=== PATIENT | female | born 2000 | race Hispanic/Latino ===

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

== ENCOUNTER 2025-09-28 23:35 | Emergency (ER) | payer BC, MEDICAID ==
[~2025-09-28] VITALS: Ht 152.4 cm; Wt 63.5 kg
--- NOTE | 2025-09-29 00:34 | NUR ---
PATIENT OBSERVED HAVING A SEIZURE
[2025-09-29 00:42] LABS: HCG,QUALITATIVE URINE NEGATIVE (NEGATIVE)
[2025-09-29 00:46] LABS: AMPHET/METH SCREEN,URINE NEGATIVE (NEGATIVE); BARBITURATE SCREEN, URINE NEGATIVE (NEGATIVE); CANNABINOID SCREEN,URINE POSITIVE (NEGATIVE); COCAINE SCREEN,URINE NEGATIVE (NEGATIVE)
--- NOTE | 2025-09-29 00:47 | NUR ---
TRIAGE EDIT TO REFECT UDS
[2025-09-29] MEDS: leveTIRACEtam 500 MG/5 ML SD V 500 MG in 0.9%NACL 100ML 100 ML IV SCH (01:25)
--- NOTE | 2025-09-29 01:29 | NUR ---
PATIENT OBSERVED HAVING ANOTHER SEIZURE, Nathan ESPARZA MADE AWARE
[2025-09-29 01:44] LABS: IMMATURE GRANULOCYTE ABSOLUTE 0.06 K/uL (0-1); NUCLEATED RED BLOOD CELLS 0.0 % (0.0-0.19); PLATELET COUNT (AUTO) 302 K/uL (130-400); RED BLOOD CELL COUNT(AUTO) 4.67 MIL/uL (4.00-5.50); RED CELL DISTRIBUTION WIDTH 12.4 % (11.0-15.5); WHITE BLOOD COUNT (AUTO) 13.1 K/uL (4.8-10.8)
--- NOTE | 2025-09-29 01:45 | ERN ---
ED Note History of Present Illness Stated Complaint: SEIZURE. SEEN AT [facility] [employer] AND DISCHARGED Chief Complaint: Seizure Time Seen by MD: 23:37 Time Seen by Midlevel: 23:40 Dictation: 24-year-old female history of epilepsy taking Keppra 1 g daily. Patient is coming in with complaints of headache and neck pain. Patient states she was in the shower slipped and fell backwards hitting her head on the soap dispenser breaking it. Patient denies any LOC but states has a felt dizzy. Patient states she was coming from [facility] for same complaint but states they only gave her 500 mg of IV Keppra for her seizures and discharged her. Allergies: Coded Allergies: No Known Allergies (Unverified Allergy, Unknown, 09/28/25) Past Medical History Past Medical History: Seizure Surgical History: Review of System Dictation Constitutional: Negative for fever,chills, and weight loss Eyes: Negative for injury, pain,redness, and discharge ENT: Negative for injury,pain or swelling Cardiovascular: Negative for chest pain, palpitations, and edema Respiratory: Negative for shortness of breath, cough, and wheezing, Abdomen/GI: Negative for abdominal pain, nausea, vomiting, diarrhea, and constipation Back: Negative for injury and pain : Negative for injury, bleeding and discharge MS/Extremity: Negative for injury and deformity Skin: Negative for rash, and discoloration Neuro: Headache without any numbness, tingling Psych: Negative for suicide ideation, homicidal ideation, and hallucinations Review of Systems: was completed Initial Vital Sign VS Vital Signs Date Time Temp Pulse Resp B/P (MAP) Pulse Ox O2 Delivery O2 Flow Rate FiO2 09/28/25 23:37 98.2 109 20 109/61 100 Room Air 09/29/25 01:41 0 21 Physical Exam Dictation General: awake, alert, NAD Head/Face: Normocephalic, atraumatic Eyes: PERRL, EOMI, vision at baseline ENT: oral cavity clear, TMs clear, no signs of infection Neck: Trachea midline, supple, no nuchal rigidity Cardiovascular: RRR, normal S1/S2, No MRGs, no JVD Respiratory: CTAB, no respiratory distress, No rales or wheezes Abdomen: Soft, non-tender, non-distended, normal bowel sounds, no guarding or rebound. Skin: Warm, dry, normal turgor, no rash MS/Extremity: Pulses equal, no cyanosis, neurovascular intact, FROM Neuro: COAx4, GCS 15, strength 5/5, CN 2-12 intact, normal cerebellar exam, normal gait, Psych: Normal behavior, mood, and affect normal Results (Laboratory/Radiology) Laboratory/Radiology Laboratory Tests Test 09/29/25 00:19 09/29/25 01:35 Urine Color LIGHT-YELLOW (YELLOW) Urine Appearance CLEAR (CLEAR) Urine pH 5.5 (5.0-8.0) Urine Specific [place] 1.018 (1.001-1.031) Urine Protein NEGATIVE mg/dL (NEGATIVE) Urine Glucose (UA) NEGATIVE mg/dL (NEGATIVE) Urine Ketones NEGATIVE mg/dL (NEGATIVE) Urine Occult Blood +- (TRACE) (NEGATIVE) H Urine Nitrate NEGATIVE (NEGATIVE) Urine Bilirubin NEGATIVE mg/dL (NEGATIVE) Urine Urobilinogen 0.2 mg/dL (0.2-1.0) Urine Leukocyte Esterase NEGATIVE Carlita/uL Urine RBC 2-5 /HPF (0-1) H Urine WBC 2-5 /HPF (0-1) H Urine Squamous Epithelial Cells FEW /HPF (0-2) Urine Bacteria RARE /HPF (None Seen) Urine HCG, Qualitative NEGATIVE (NEGATIVE) Urine Opiates Screen NEGATIVE (NEGATIVE) Urine Barbiturates Screen NEGATIVE (NEGATIVE) Urine Phencyclidine Screen NEGATIVE (NEGATIVE) Urine Amphetamines Screen NEGATIVE (NEGATIVE) Urine Benzodiazepines Screen NEGATIVE (NEGATIVE) Urine Cocaine Screen NEGATIVE (NEGATIVE) Urine Marijuana (THC) Screen POSITIVE (NEGATIVE) H White Blood Count 13.1 K/uL (4.8-10.8) H Red Blood Count 4.67 MIL/uL (4.00-5.50) Hemoglobin 13.9 g/dL (12.0-16.0) Hematocrit 41.4 % (36-48) Mean Corpuscular Volume 88.7 fL (79-99) Mean Corpuscular Hemoglobin 29.8 pg (27.0-33.0) Mean Corpuscular Hemoglobin Concent 33.6 g/dL (32.0-36.0) Red Cell Distribution Width 12.4 % (11.0-15.5) Platelet Count 302 K/uL (130-400) Mean Platelet Volume 10.7 fL (7.5-10.5) H Immature Granulocyte % (Auto) 0.5 % (0-1) Neutrophils (%) (Auto) 77.5 % (40.0-77.0) H Lymphocytes (%) (Auto) 13.0 % (21.0-51.0) L Monocytes (%) (Auto) 6.7 % (3.0-13.0) Eosinophils (%) (Auto) 1.9 % (0.0-8.0) Basophils (%) (Auto) 0.4 % (0.0-5.0) Neutrophils # (Auto) 10.2 K/uL (1.8-7.7) H Lymphocytes # (Auto) 1.7 K/uL (1.0-4.8) Monocytes # (Auto) 0.9 K/uL (0.1-1.0) Eosinophils # (Auto) 0.25 K/uL (0.00-0.70) Basophils # (Auto) 0.05 K/uL (0.00-0.20) Absolute Immature Granulocyte (auto 0.06 K/uL (0-1) Nucleated Red Blood Cells 0.0 % (0.0-0.19) Sodium Level 138 mmol/L (136-145) Potassium Level 4.0 mmol/L (3.5-5.1) Chloride Level 103 mmol/L (101-111) Carbon Dioxide Level 24 mmol/L (21-32) Blood Urea Nitrogen 18 mg/dL (7-18) Creatinine 0.6 mg/dL (0.5-1.0) Glomerular Filtration Rate Calc 127 mL/min (>90) Random Glucose 88 mg/dL (70-105) Lactic Acid Level 2.9 mmol/L (0.8-2.5) H Total Calcium 9.1 mg/dL (8.5-10.1) Total Creatine Kinase 138 U/L (21-232) # Labs Reviewed?: Yes ED Course ED Course Orders Procedure Category Date Status Time Ct Head/Brain W/O CT 09/28/25 Resulted Contrast 23:41 Ct Cervical Spine W/O CT 09/28/25 Resulted Contrast 23:41 ,Urine Test LAB 09/29/25 Complete 00:10 Drug Screen Urine LAB 09/29/25 Complete 00:10 Levetiracetam 500 PHA 09/29/25 Complete Mg/5 Ml Sd V (Keppra 5 06:00 Lorazepam 2 Mg PHA 09/29/25 Complete (Ativan) 01:00 Levetiracetam 500 PHA 09/29/25 Complete Mg/5 Ml Sd V (Keppra 5 01:30 Phenytoin 100mg PHA 09/29/25 Complete (50mg/Ml) Inj 01:49 Cbc With Differential LAB 09/29/25 Complete 01:33 Basic Metabolic Panel LAB 09/29/25 Complete 01:33 Lactic Acid LAB 09/29/25 Complete 01:33 Creatine Kinase, Total LAB 09/29/25 Complete 01:33 Phenytoin Sodium PHA 09/29/25 Complete 250mg (Dilantin 250mg 01:51 Urinalysis Profile LAB 09/29/25 Complete 01:53 Current Medications Medications (Trade) Dose Ordered Sig/Polly Route PRN Reason Start Time Stop Time Status Last Admin Dose Admin Levetiracetam 500 mg/Sodium Chloride 100 ml @ 400 mls/hr Q8H IV 09/29/25 01:30 09/29/25 01:27 DC 09/29/25 01:25 Levetiracetam 500 mg/Sodium Chloride 100 ml @ 400 mls/hr Q8H IV 09/29/25 06:00 09/29/25 01:09 DC Lorazepam (AtiVAN) 1 mg ONCE ONCE IVP 09/29/25 01:00 09/29/25 01:01 DC 09/29/25 00:48 Phenytoin Sodium 1000 mg/Sodium Chloride 50 ml @ 300 mls/hr ONCE STAT INJ 09/29/25 01:51 09/29/25 02:00 DC 09/29/25 02:06 Phenytoin Sodium 1000 mg/Sodium Chloride 50 ml @ 300 mls/hr ONCE STAT IV 09/29/25 01:49 09/29/25 01:51 DC Vital Signs Date Time Temp Pulse Resp B/P (MAP) Pulse Ox O2 Delivery O2 Flow Rate FiO2 09/29/25 03:52 98.4 65 17 101/56 Room Air* 0 09/29/25 02:43 80 18 110/72 97 Room Air* 0 09/29/25 01:41 90 18 107/76 96 Room Air* 0 09/28/25 23:37 98.2 109 20 109/61 100 Room Air Medical Decision Making MDM MDM: 24-year-old female history of epilepsy taking Keppra 1 g daily. Patient is coming in with complaints of headache and neck pain. Patient states she was in the shower slipped and fell backwards hitting her head on the soap dispenser breaking it. Patient denies any LOC but states has a felt dizzy. Patient states she was coming from [facility] for same complaint but states they only gave her 500 mg of IV Keppra for her seizures and discharged her. Patient had a tonic-clonic seizure lasting about 1 minute. 500 mg of IV Keppra odor to complete the 1 g. 1 mg of Ativan ordered. At around 130, patient had another seizure. Discussed case with the ER MD, suggested giving him 1 g of Dilantin and transfer patient for Neurology consult. Added lab work at this time. Differential diagnosis: SDH, head contusion, breakthrough seizure Rationale: Tests considered and ordered secondary to shared decision making include: labs, ECG and radiology Previous outside records reviewed: Old ER visits. Risk of complication and/or morbidity or mortality of patient management: None Medications-Per medication reconciliation Need for hospitalization: Patient does meet criteria for hospitalization. Need for emergency major/minor surgery: No There are no social concerns with this patient. Prescription drug management Prescriptions will include symptomatic care Patient's prior external medical records from other ER visits were reviewed by me as indicated. Prior testing and results from previous visits were reviewed. Prior tests were taken into account with medical decision making and resource utilization, independent historian/historians were used to obtain complete medical history. I independently interpreted the test that were performed, results were reviewed by me and considered findings on radiology if ordered. Medical management and examination interpretation discussions were had by me with other qualified healthcare professionals as indicated for the patient's care. Patient required an additional mg of Ativan and a dose of Dilantin to hold her seizures. We have no neurological services here and so patient was transferred to [facility]. I discussed the patient with them and they accepted her. DX & DISP Disposition: Transfer Departure Impression: Primary Impression: Seizure Additional Impressions: Marijuana use, Head contusion Condition: Stable Referrals: SELF,REFERRAL (PCP) I have reviewed the case, and I agree with, Diagnosis and Plan HEMANTH KNUTSON CNP Sep 29, 2025 01:45 SOFI MUÑOZ MD Sep 29, 2025 04:12
[2025-09-29] MEDS ORDERED: [UNRECOGNIZED DRUG - OTHER] IV STA (01:49)
[2025-09-29] MEDS ORDERED: PHENYTOIN IV STA (01:49)
[2025-09-29 01:52] LABS: CREATININE 0.6 mg/dL (0.5-1.0); GLOMERULAR FILTR. RATE CALC 127.0 mL/min (>90); GLUCOSE,RANDOM 88.0 mg/dL (70-105); SODIUM SERUM 138.0 mmol/L (136-145); UREA NITROGEN, BLOOD 18.0 mg/dL (7-18)
[2025-09-29 01:57] LABS: CREATINE KINASE, TOTAL 138.0 U/L (21-232)
[2025-09-29 02:11] LABS: APPEARANCE,URINE CLEAR (CLEAR); GLUCOSE, URINE (UA) NEGATIVE (NEGATIVE); LEUKOCYTE ESTERASE ,URINE NEGATIVE Leu/uL (NEGATIVE); NITRATE,URINE NEGATIVE (NEGATIVE); OCCULT BLOOD,URINE +- (TRACE) (NEGATIVE)
--- NOTE | 2025-09-29 02:11 | HMCIMG ---
EXAM: CT Cervical Spine Without IV contrast. CLINICAL HISTORY: fall TECHNIQUE: Axial computed tomography images of the cervical spine without intravenous contrast. Sagittal and coronal reformatted images were generated. COMPARISON: None provided. FINDINGS: ALIGNMENT: There is a loss of cervical lordosis and mild torticollis with convexity towards the right, which could be due to paraspinal muscle spasm. No acute fracture or subluxation. DEGENERATIVE CHANGES: Minimal marginal osteophytes at C3-C6 levels. No significant canal stenosis or neural foraminal narrowing is evident. SOFT TISSUES: The prevertebral soft tissues are within normal limits. BONES: No acute fracture or aggressively appearing osseous lesion. IMPRESSION: Loss of cervical lordosis and mild torticollis with convexity towards the right, which could be due to paraspinal muscle spasm. No acute fracture or subluxation. /[place]
--- NOTE | 2025-09-29 02:17 | HMCIMG ---
EXAM: CT Head Without IV contrast. CLINICAL HISTORY: fall TECHNIQUE: Axial computed tomography images of the head/brain without intravenous contrast. COMPARISON: None provided. FINDINGS: Axial computed tomography images of the head/brain without intravenous contrast. BRAIN: No evidence of acute hemorrhage. No mass lesion. No CT evidence for acute territorial infarct. No midline shift or extra-axial collections. VENTRICLES: No hydrocephalus. ORBITS: The orbits are unremarkable. SINUSES AND MASTOIDS: The paranasal sinuses and mastoid air cells are clear. BONES: No fracture. SOFT TISSUES: MISCELLANEOUS: IMPRESSION: No acute intracranial abnormality. Recommend MRI brain correlation if clinical suspicion for subtle brain injury persists. /[place]azen
[2025-09-29 02:23] LABS: ADD UA MICROSCOPIC YES
[2025-09-29 02:24] LABS: SQUAMOUS EPITHELIAL CELL,UR FEW /HPF (0-2)
--- NOTE | 2025-09-29 02:36 | NUR ---
TRANSFER CALL PLACED TO [facility] TO INITIATE TRANSFER FOR NEUROLOGY SERVICES
[2025-09-29 02:43] VITALS: O2SAT 97
--- NOTE | 2025-09-29 03:36 | NUR ---
TRANSFER PT. WAS ACCEPTED @ 0305 BY JOSE ANGEL RUBIN MD FOR TRANSFER TO [facility]. ROOM ASSIGNMENT AT THIS TIME: 133-1. REPORT: [phone]
[2025-09-29 03:52] VITALS: BP 101/56; PULSE 65; RESP 17; TEMP 98.5
--- NOTE | 2025-09-29 04:00 | NUR ---
[facility] CALLED FOR TRANSPORT OF MONITORED, NEUROLOGY PATIENT
--- NOTE | 2025-09-29 04:09 | NUR ---
REPORT CALLED TO MIGDALIA REEVES AT [facility]. PATIENT AWAITING EMS TRANSPORT
[2025-09-29] MEDS ORDERED: leveTIRACEtam 500 MG/5 ML SD V 500 MG in 0.9%NACL 100ML 100 ML IV SCH (06:00)
== END 2025-09-29 04:17 | disposition short-term general hospital (02) ==
LOC: EDH 23:35
DX: S00.93XA Contusion of unspecified part of head, initial encounter (principal); G40.909 Epilepsy, unspecified, not intractable, without status epilepticus; F12.90 Cannabis use, unspecified, uncomplicated; W18.2XXA Fall in (into) shower or empty bathtub, initial encounter; Y93.E1 Activity, personal bathing and showering; Y92.89 Other specified places as the place of occurrence of the external cause; Y99.8 Other external cause status
CPT/HCPCS: 99285; 70450; 82550; 80048; 80305; 85025; 83605; 81025; 36415; 72125; 81001; 96365; 96375; J1953; J2060; J1165 ×2